=== PATIENT | female | born 2000 | race Caucasian/White ===

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

== ENCOUNTER 2018-01-15 16:34 | Emergency (ER) | payer OTHER ==
[2018-01-15] MEDS: DOXYCYCLINE HYCLATE 100 MG TAB PO (19:45)
[2018-01-15] MEDS: LIDOCAINE 1% MDV 20ML VIAL SC (19:45)
[2018-01-15] MEDS: NORCO, ANEXSIA 5/325MG TABLET (HYDROcodone/ACETAMINOPHEN) PO ×2 (19:45→20:30)
== END 2018-01-15 20:35 | disposition home or self-care (01) ==
LOC: M ED 16:34
DX: L03.112 Cellulitis of left axilla (principal)
CPT/HCPCS: 87186